=== PATIENT | female | born 1945 ===

== ENCOUNTER 2017-03-04 13:11 | Emergency (ER) | payer OTHER, MEDICAID ==
[2017-03-04] MEDS ORDERED: Sodium Chloride 0.9% 1,000 ML IV STA (13:59)
--- NOTE | 2017-03-04 14:18 | ED PDOC ---
HPI: SOB/CHF/COPD Time Seen by Provider: 03/04/17 13:21 Chief Complaint (Nursing): Shortness Of Breath Chief Complaint (Provider): Diarrhea, shortness of breath, fever History Per: Family (marketing communication manager) History/Exam Limitations: no limitations Onset/Duration Of Symptoms: Days (x2-3 weeks) Current Symptoms Are (Timing): Still Present Additional Complaint(s): Yaneth Lcuia is a 71 year old female with a past medical history of Stage 4 Liver CA, diabetes, hypertension, and anemia and a past surgical history of a stomach resection due to stomach CA presenting to the ED accompanied by her marketing communication manager for an evaluation of jaundice, generalized weakness, diarrhea, shortness of breath, fever, diaper rash, loss of appetite, and being in and out of lucidity occurring prior to arrival. The patient used to be on chemotherapy for her Liver cancer, proven to make a difference in the patients health, with her last chemotherapy treatment occurring in August. The patient was then switched to radiation therapy, with her first treatment on February 09, when her symptoms started to begin. The patient normally receives her chemotherapy and radiation treatments at [facility], but due to her symptoms was told to visit the ED. The patient was told she needs chemicals from radiation to be flushed out. Additionally, she does not know where her liver cancer has spread. The patient denies vomiting or cough. PMD: MD Sheela Past Medical History Reviewed: Historical Data, Nursing Documentation, Vital Signs Vital Signs: Last Vital Signs Temp 99.3 F 03/04/17 19:55 Pulse 91 H 03/04/17 21:20 Resp 20 03/04/17 21:20 BP 101/56 L 03/04/17 21:20 Pulse Ox 98 03/04/17 21:20 - Medical History PMH: Asthma, Diabetes, HTN Other PMH: Stage 4 Liver CA; previous stomach CA - Family History Family History: States: No Known Family Hx - Social History Current smoker - smoking cessation education provided: No Ex-Smoker (has not smoked in the last 12 months): No Alcohol: None Drugs: Denies - Immunization History Hx Tetanus Toxoid Vaccination: Yes Hx Influenza Vaccination: Yes Hx Pneumococcal Vaccination: Yes - Home Medications Home Medications: Ambulatory Orders Medication Instructions Recorded Clopidogrel [Plavix] 75 mg PO DAILY 12/07/13 Valsartan [Diovan] 320 mg PO DAILY 12/07/13 Albuterol HFA [Ventolin HFA 90 2 puff IH Q4H PRN 03/04/17 mcg/actuation (8 g)] Carvedilol [Coreg] 12.5 mg PO Q12H 03/04/17 DULoxetine [Cymbalta] 60 mg PO QAM 03/04/17 DiphenhydrAMINE [Benadryl] 50 mg PO Q6H PRN 03/04/17 Docusate [Colace] 100 mg PO DAILY PRN 03/04/17 LORazepam [Ativan] 1 mg PO TID 03/04/17 Mirtazapine [Remeron] 15 mg PO HS 03/04/17 Nitroglycerin [Nitromist] 0.4 mg SL Q5MIN PRN 03/04/17 Pantoprazole Sodium [Protonix] 40 mg PO DAILY 03/04/17 Prochlorperazine [Compazine] 10 mg PO Q6H PRN 03/04/17 Rivastigmine [Exelon 13.3 mg/24 hr 1 patch TD DAILY 03/04/17 Patch] Spironolactone [Aldactone] 25 mg PO DAILY 03/04/17 Tiotropium [Spiriva] 18 mcg IH DAILY 03/04/17 Ursodiol [Actigall] 300 mg PO BID 03/04/17 Zolpidem [Ambien] 10 mg PO HS 03/04/17 busPIRone [Buspar] 10 mg PO TID 03/04/17 - Allergies Allergies/Adverse Reactions: Allergies Allergy/AdvReac Type Severity Reaction Status Date / Time aspirin Allergy RASH Verified 03/04/17 13:26 codeine Allergy RASH Verified 03/04/17 13:26 iodine Allergy RASH Verified 03/04/17 13:26 Review of Systems ROS Statement: Except As Marked, All Systems Reviewed And Found Negative Constitutional: Positive for: Fever, Weakness (generalized weakness), Other ( loss of appetite) Respiratory: Positive for: Shortness of Breath. Negative for: Cough Gastrointestinal: Positive for: Diarrhea. Negative for: Vomiting Skin: Positive for: Rash (diaper rash), Jaundice Neurological: Positive for: Other (in and out of lucidity) Physical Exam - Reviewed Nursing Documentation Reviewed: Yes Vital Signs Reviewed: Yes - Physical Exam Appears: Negative for: Non-toxic (ill) Head Exam: Positive for: ATRAUMATIC, NORMOCEPHALIC Skin: Positive for: Warm, Dry, Pallor Eye Exam: Positive for: EOMI, PERRL, Conjunctival injection (pale conjunctiva) ENT: Positive for: Pharynx Is (dry mucuos membranes) Neck: Positive for: Normal, Painless ROM, Supple Cardiovascular/Chest: Positive for: Tachycardia (with regular rate). Negative for: Edema, Murmur Respiratory: Positive for: Respiratory Distress (mild), Other (tachypnic) Gastrointestinal/Abdominal: Positive for: Normal Exam, Soft. Negative for: Tenderness Back: Positive for: Normal Inspection Extremity: Positive for: Normal ROM, Pedal Edema (bilat) Neurologic/Psych: Positive for: Alert, Oriented (x3). Negative for: Motor/ Sensory Deficits - Laboratory Results Result Diagrams: 03/04/17 14:39 03/04/17 14:39 - ECG O2 Sat by Pulse Oximetry: 99 (RA) Pulse Ox Interpretation: Normal Medical Decision Making Medical Decision Making: Time: 13:21 Impression: Patient with Stage 4 Liver CA s/p chemotherapy and radiation therapy presenting with diarrhea, shortness of breath, and fever Differential includes but is not limited to infection, pneumonia, sepsis, dehydration, electrolyte abnormalities, Tumor Lysis Syndrome, Gastroenteritis, pulmonary embolism, C. Diff., Anemia with other conditions considered Plan: * Type and Screen * ABG Shock panel * ED EKG * BMP * CMP * CBC (with differential) * D Dimer [COAG] * Partial Thromboplastin Time * Prothrombin Time * Blood Culture * C Diff Toxin A B * Influenza A B * NS 0.9% 1,000 ml IV 1,000 mls/hr * Zofran 4 mg IV * [RAD] Chest Portable * Reevaluation Chest X-Ray Results: FINDINGS: LUNGS: Medial right upper lobe opacity. Questionable left lower lobe opacity. Right basilar opacity with ill-defined nodular component which may represent a mass. Follow-up advised to exclude underlying neoplasm. PLEURA: Probable small bilateral pleural effusion. No pneumothorax. CARDIOVASCULAR: Normal. OSSEOUS STRUCTURES: No significant abnormalities. VISUALIZED UPPER ABDOMEN: Normal. OTHER FINDINGS: None. IMPRESSION: Multifocal right-sided opacity/infiltrate with questionable mass right base versus rounded consolidation. Followup to exclude underlying neoplasm. Questionable left basilar opacity. Probable small bilateral pleural effusion. 15:15 Spoke with pt's oncologist, Dr. Munoz. Requested to transfer pt to ER because unable to provide subspecialty services for Liver CA as pt has experimental ALANA device 16:00 * Crossmatch * Type and Screen * Zosyn 3.375 gm NS 0.9% 100 ml IVPB * CT Angio Chest PE Protocol 1730 -Spoke with Dr. Viveros, ER attending, who accepted the patient for transfer to [facility] ER. [address] FINDINGS: PULMONARY ARTERIES: The visualized of pulmonary trunk and right and left main pulmonary arteries are patent. . The remaining pulmonary arteries cannot be adequately evaluated due to at aforementioned artifact and the study is therefore nondiagnostic Pulmonary trunk measures approximately 3.7 cm; rule out underlying pulmonary arterial hypertension. AORTA: Ascending thoracic aorta mildly dilated measuring approximately 3.9 cm. Descending thoracic aorta measures approximately 2.7 cm. LUNGS: Bibasilar atelectasis -consolidation left greater than right. Patchy infiltrate changes are seen in the upper and middle lobe regions. . Several nodular opacities are also seen in the left upper lobe PLEURAL SPACES: Moderately large bilateral effusions. HEART: Heart is enlarged. No significant pericardial effusion. The ascending thoracic aorta measures approximately LYMPH NODES: Evaluation for hilar adenopathy given the at aforementioned atelectatic/ consolidation changes effusions and streak artifact. BONES, CHEST WALL: Multilevel degenerative spondylosis of the thoracic and upper lumbar spine. OTHER FINDINGS: There is perihepatic ascites. Previously noted small area of low attenuation anterior aspect left lobe liver poorly seen due to the aforementioned limitations. IMPRESSION: The visualized portions of the pulmonary trunk and right and left main pulmonary arteries appear patent. . The remaining pulmonary arteries cannot be adequately evaluated and the study is nondiagnostic due to the aforementioned significant artifact. There is dilatation of the pulmonary trunk suggesting underlying pulmonary arterial hypertension. Large bilateral effusions and bibasilar atelectasis/consolidation. Patchy infiltrate changes right upper and middle lobe. Nodular opacities left upper lobe. Cardiomegaly. Aneurysmal dilatation of the ascending thoracic aorta. Scribe Attestation: Documented by Lina Newton, acting as a scribe for Jennifer Sargent MD. Provider Scribe Attestation: All medical record entries made by the Scribe were at my direction and personally dictated by me. I have reviewed the chart and agree that the record accurately reflects my personal performance of the history, physical exam, medical decision making, and the department course for this patient. I have also personally directed, reviewed, and agree with the discharge instructions and disposition. Disposition - Clinical Impression Clinical Impression: Colon cancer - Patient ED Disposition Is Patient to be Admitted: No Counseled Patient/Family Regarding: Studies Performed, Diagnosis - Disposition Disposition: Other Institution ([facility]) Disposition Time: 17:40 Condition: STABLE
[2017-03-04 14:23] LABS: ABG ALLEN TEST YES; ARTERIAL BLOOD GAS HCO3 28.4 mmol/L (21-28); ARTERIAL BLOOD GAS MODE NC; ARTERIAL BLOOD GAS PH 7.55 (7.35-7.45); ARTERIAL BLOOD GAS PO2 57 mm/Hg (80-100)
[2017-03-04] MEDS ORDERED: Piperacillin/Tazobact 3.375 GM in Sodium Chloride 0.9% 100 ML IVPB STA (14:37)
[2017-03-04 14:42] LABS: BASO % 0.3 % (0.0-2.0); EOS # 0.1 K/uL (0.0-0.7); EOS % 0.6 % (0.0-4.0); HEMATOCRIT 22.5 % (34.0-47.0); LYMPH # 1.2 K/uL (1.0-4.3); LYMPH % 13.4 % (20.0-40.0); MEAN CELL VOLUME 86.7 fl (81.0-99.0); MEAN CORPUSCULAR HEMOGLOBIN 27.2 pg (27.0-31.0); MEAN CORPUSCULAR HGB CONC 31.4 g/dL (33.0-37.0); MEAN PLATELET VOLUME 8.7 fl (7.2-11.7); MONO # 1.7 K/uL (0.0-0.8); MONO % 18.7 % (0.0-10.0); NEUT # 5.9 K/uL (1.8-7.0); NRBC % 0.1 % (0.0-0.0); RED CELL DISTRIBUTION WIDTH 25.5 % (11.5-14.5); WHITE BLOOD COUNT 8.9 K/uL (4.8-10.8)
[2017-03-04 14:53] LABS: ALKALINE PHOSPHATASE 116 U/L (38-126); ALT/SGPT 35 U/L (9-52); AST/SGOT 32 U/L (14-36); BILIRUBIN,TOTAL 1.5 mg/dl (0.2-1.3); BLOOD UREA NITROGEN 16 mg/dl (7-17); CALCIUM 8.6 mg/dL (8.4-10.2); CARBON DIOXIDE 25 mmol/L (22-30); CHLORIDE 106 mmol/L (98-107); GFR AFRICAN-AMERICAN > 60; GLUCOSE,RANDOM 144 mg/dL (65-105); POTASSIUM 3.9 MMOL/L (3.6-5.0); SODIUM 140 mmol/l (132-148); TOTAL PROTEIN 6.6 G/DL (6.3-8.2)
--- NOTE | 2017-03-04 14:54 | RAD ---
HISTORY: dyspnea COMPARISON: 05/09/2009 FINDINGS: LUNGS: Medial right upper lobe opacity. Questionable left lower lobe opacity. Right basilar opacity with ill-defined nodular component which may represent a mass. Follow-up advised to exclude underlying neoplasm. PLEURA: Probable small bilateral pleural effusion. No pneumothorax. CARDIOVASCULAR: Normal. OSSEOUS STRUCTURES: No significant abnormalities. VISUALIZED UPPER ABDOMEN: Normal. OTHER FINDINGS: None. IMPRESSION: Multifocal right-sided opacity/infiltrate with questionable mass right base versus rounded consolidation. Followup to exclude underlying neoplasm. Questionable left basilar opacity. Probable small bilateral pleural effusion.
[2017-03-04 14:55] LABS: ALB/GLOB RATIO 0.7 (1.0-2.1)
[2017-03-04 15:18] LABS: PARTIAL THROMBOPLASTIN TIME 29.3 Seconds (25.6-37.1)
[2017-03-04] MEDS ORDERED: Iodixanol 320 MG/ML 100 ML BOTTLE IV ONE (16:38)
--- NOTE | 2017-03-04 18:03 | CT ---
PROCEDURE: CT Chest with contrast (Pulmonary Angiogram) HISTORY: Chest pain COMPARISON: Comparison made with CT scan chest dated 02/2010. TECHNIQUE: Axial computed tomography images were obtained of the chest in the pulmonary arterial phase of enhancement. Coronal and sagittal reformatted images were created and reviewed. Intravenous contrast dose: 80 cc Visipaque 320 Radiation dose: Total exam DLP = 538.17 mGy-cm. This CT exam was performed using one or more of the following dose reduction techniques: Automated exposure control, adjustment of the mA and/or kV according to patient size, and/or use of iterative reconstruction technique. . Note that this examination is extremely limited due to significant streak and beam hardening artifact arising from the upper extremities which have not been moved from the field of view as well as suboptimal opacification of the pulmonary arteries. Large bilateral effusions and bibasilar atelectasis also limits the exam. The left lower lobe pulmonary branches are significantly obscured. FINDINGS: PULMONARY ARTERIES: The visualized of pulmonary trunk and right and left main pulmonary arteries are patent. . The remaining pulmonary arteries cannot be adequately evaluated due to at aforementioned artifact and the study is therefore nondiagnostic Pulmonary trunk measures approximately 3.7 cm; rule out underlying pulmonary arterial hypertension. AORTA: Ascending thoracic aorta mildly dilated measuring approximately 3.9 cm. Descending thoracic aorta measures approximately 2.7 cm. LUNGS: Bibasilar atelectasis -consolidation left greater than right. Patchy infiltrate changes are seen in the upper and middle lobe regions. . Several nodular opacities are also seen in the left upper lobe PLEURAL SPACES: Moderately large bilateral effusions. HEART: Heart is enlarged. No significant pericardial effusion. The ascending thoracic aorta measures approximately LYMPH NODES: Evaluation for hilar adenopathy given the at aforementioned atelectatic/consolidation changes effusions and streak artifact. BONES, CHEST WALL: Multilevel degenerative spondylosis of the thoracic and upper lumbar spine. OTHER FINDINGS: There is perihepatic ascites. Previously noted small area of low attenuation anterior aspect left lobe liver poorly seen due to the aforementioned limitations. IMPRESSION: The visualized portions of the pulmonary trunk and right and left main pulmonary arteries appear patent. . The remaining pulmonary arteries cannot be adequately evaluated and the study is nondiagnostic due to the aforementioned significant artifact. There is dilatation of the pulmonary trunk suggesting underlying pulmonary arterial hypertension. Large bilateral effusions and bibasilar atelectasis/consolidation. Patchy infiltrate changes right upper and middle lobe. Nodular opacities left upper lobe. Cardiomegaly. Aneurysmal dilatation of the ascending thoracic aorta.
[2017-03-04] MEDS ORDERED: Albuterol-Ipratrop 3 mg / 0.5 (3 ml) UD INH STA (18:05)
[2017-03-04] MEDS ORDERED: Albuterol-Ipratrop 3 mg / 0.5 (3 ml) UD ONE (18:10)
[2017-03-04 20:04] VITALS: TEMP 99.3
[2017-03-04 21:31] VITALS: BP 101/56; PULSE 91; RESP 20
--- NOTE | 2017-03-05 09:08 | CARD ---
APPROVED REPORT EKG Measurement Heart [id number] <Conclusion> Sinus tachycardia Nonspecific T wave abnormality Abnormal ECG
[2017-03-10 01:07] VITALS: O2SAT 99
== END 2017-03-04 21:52 | disposition short-term general hospital (02) ==
LOC: H.ER 13:11
DX: C22.9 Malignant neoplasm of liver, not specified as primary or secondary (principal); E11.9 Type 2 diabetes mellitus without complications; I10 Essential (primary) hypertension; Z87.891 Personal history of nicotine dependence; Z92.21 Personal history of antineoplastic chemotherapy; Z92.3 Personal history of irradiation
CPT/HCPCS: 36600; 71010; 71275; 80053; 82803; 85025; 85378; 85610; 85730; 86850; 86900; 86920; 87040; 87804; 93005; 94640; 96374; 96375; 99285; J2405; J2543; J7040; Q9967